=== PATIENT | female | born 1930 | race Asian ===

== ENCOUNTER 2022-07-11 20:49 | Emergency (ER) | payer MEDICARE, OTHER ==
[~2022-07-11] VITALS: Ht 152.4 cm; Wt 59.0 kg
--- NOTE | 2022-07-11 21:18 | NUR ---
BIBFAM FROM HOME C/O DIZZY X 2DAYS. PT A/OX3. TOLERATING R/A WELL WITH NO RESP DISTRESS. AMB WITH ASSIST. SAFETY MEASURES IN PLACE.
--- NOTE | 2022-07-11 21:49 | NUR ---
URINE COLLECTED AND SENT TO LAB
--- NOTE | 2022-07-11 22:06 | NUR ---
IV RAC #20G S/L BLOOD COLLECTED AND SENT TO LAB
--- NOTE | 2022-07-11 22:07 | NUR ---
BEATER DUMPER AT PT'S BEDSIDE
--- NOTE | 2022-07-11 22:17 | NUR ---
PT TAKEN TO CT VIA JANET
[2022-07-11 22:21] LABS: BASOPHILS % (AUTO) 0.4 % (0.0-2.0); EOSINOPHILS % (AUTO) 1.3 % (0.0-6.0); HEMATOCRIT 33 % (33-45); HEMOGLOBIN 10.3 g/dL (11.5-14.8); LYMPHOCYTES # (AUTO) 1.3 K/uL (0.8-4.8); LYMPHOCYTES % (AUTO) 19.1 % (20.0-44.0); MEAN CORPUSCULAR HGB CONC 31 g/dl (31.0-36.0); MEAN CORPUSCULAR VOLUME 71 fL (82-100); MONOCYTES # (AUTO) 0.4 K/uL (0.1-1.30); MONOCYTES % (AUTO) 5.7 % (2.0-12.0); NEUTROPHILS % (AUTO) 73.5 % (43.0-81.0); PLATELET COUNT (AUTO) 211 K/uL (150-450); RED BLOOD CELL COUNT(AUTO) 4.68 MIL/uL (4.0-5.2); WHITE BLOOD COUNT (AUTO) 6.8 K/uL (4.3-11.0)
[2022-07-11 22:21] LABS: BILIRUBIN,URINE NEGATIVE (NEGATIVE); COLOR,URINE YELLOW (YELLOW); LEUKOCYTE ESTERASE ,URINE NEGATIVE (NEGATIVE); NITRITE, URINE NEGATIVE (NEGATIVE); PROTEIN,URINE NEGATIVE (NEGATIVE); UGLUCOSE 2+ mg/dL (NEGATIVE); UROBILINOGEN,URINE 0.2 EU/dL (0.2)
[2022-07-11 22:23] LABS: BACTERIA,URINE Rare /HPF (None Seen); RBC,URINE 0-2 /HPF (0-2); SQUAMOUS EPITHELIAL CELL,UR Rare /HPF (None Seen); WBC,URINE 0-2 /HPF (0-3)
[2022-07-11 22:41] LABS: CALCIUM, SERUM 9.3 mg/dL (8.5-10.1); CARBON DIOXIDE 26 mmol/L (21-32); CHLORIDE 105 mmol/L (98-107); CREATININE 1.1 mg/dL (0.6-1.3); GLUCOSE 235 mg/dL (74-106); POTASSIUM 3.8 mmol/L (3.5-5.1); SODIUM SERUM 138 mmol/L (136-145); UREA NITROGEN, BLOOD 16 mg/dL (7-18)
[2022-07-11 22:47] LABS: ALANINE AMINOTRANSFERASE 24 U/L (12-78); ALBUMIN 3.4 g/dL (3.4-5.0); ALKALINE PHOSPHATASE 104 U/L (46-116); ASPARTATE AMINOTRANSFERASE 15 U/L (15-37); BILIRUBIN,DIRECT 0.1 mg/dL (0.0-0.2); BILIRUBIN,TOTAL 0.4 mg/dL (0.2-1.0); TOTAL PROTEIN, SERUM 7.7 g/dL (6.4-8.2)
[2022-07-11] MEDS ORDERED: IV NS 0.9% 500 ML IV ONE (23:00)
--- NOTE | 2022-07-11 23:09 | NUR ---
COVID AND INFLUENZA DONE AND SENT TO LAB
--- NOTE | 2022-07-11 23:16 | NUR ---
RSV SWAB COLLECTED AND SENT TO LAB
--- NOTE | 2022-07-12 00:13 | NUR ---
BARN BOSS AT PT'S BEDSIDE
--- NOTE | 2022-07-12 01:18 | NUR ---
IV CANNULA REMOVED
[2022-07-12 01:19] VITALS: BP 144/59
--- NOTE | 2022-07-12 01:19 | NUR ---
Patient discharged to home in stable condition. Written and verbal after care instructions given. Patient verbalizes understanding of instruction.
== END 2022-07-12 01:20 | disposition home or self-care (01) ==
LOC: ER 20:53
DX: R42 Dizziness and giddiness (principal); E11.65 Type 2 diabetes mellitus with hyperglycemia; Z20.822 Contact with and (suspected) exposure to COVID-19; D50.9 Iron deficiency anemia, unspecified; I11.9 Hypertensive heart disease without heart failure
CPT/HCPCS: 99285; 70450; 71045; 87426; 93005; 87804; 85025; 80048; 80076; 81001; 36415 ×2; 87420; 84484 ×2; J7040; C9803